=== PATIENT | female | born 1940 | race Caucasian/White ===

== ENCOUNTER → 2017-04-27 20:04 | Outpatient (CLI) | payer MEDICARE ==
[2017-04-27 21:32] LABS: INR 2.15 (0.85-1.17); PROTIME 23.4 SECONDS (11.6-15.0)
== END | disposition home or self-care (01) ==
LOC: D.LABREF 20:04
PROVIDERS: Family Medicine
DX: I48.91 Unspecified atrial fibrillation (principal)

== ENCOUNTER → 2017-05-30 17:20 | Outpatient (CLI) | payer MEDICARE ==
[2017-05-30 19:08] LABS: INR 1.64 (0.85-1.17); PROTIME 18.9 SECONDS (11.6-15.0)
== END | disposition home or self-care (01) ==
LOC: D.LABREF 17:20
PROVIDERS: Internal Medicine
DX: I50.9 Heart failure, unspecified (principal)

== ENCOUNTER → 2018-04-17 13:54 | Outpatient (CLI) | payer MEDICARE ==
[2018-04-17 14:50] LABS: INR 1.55 (0.85-1.17)
[2018-04-17 14:52] LABS: ANION GAP 18.6 mmol/L (8-16); CALCIUM 8.2 mg/dL (8.5-10.1); CARBON DIOXIDE 18.2 mmol/L (21.0-32.0); CREATININE - SERUM 1.2 mg/dL (0.6-1.3); POTASSIUM - SERUM 4.8 mmol/L (3.5-5.1)
== END | disposition home or self-care (01) ==
LOC: D.LABREF 13:54
PROVIDERS: Internal Medicine
DX: I48.91 Unspecified atrial fibrillation (principal)

== ENCOUNTER → 2018-07-14 08:29 | Outpatient (CLI) | payer MEDICARE ==
[2018-07-14 09:12] LABS: ANION GAP 15.5 mmol/L (8-16); CALCIUM 8.4 mg/dL (8.5-10.1); CARBON DIOXIDE 21.4 mmol/L (21.0-32.0); CREATININE - SERUM 1.3 mg/dL (0.6-1.3); POTASSIUM - SERUM 4.9 mmol/L (3.5-5.1)
== END | disposition home or self-care (01) ==
LOC: D.LABREF 08:29
PROVIDERS: ATTEND Internal Medicine
DX: R19.7 Diarrhea, unspecified (principal)

== ENCOUNTER → 2018-07-26 16:53 | Outpatient (CLI) | payer MEDICARE ==
[2018-07-26 18:21] LABS: INR 1.66 (0.85-1.17)
== END | disposition home or self-care (01) ==
LOC: D.LABREF 16:53
PROVIDERS: ATTEND Family Medicine
DX: I48.91 Unspecified atrial fibrillation (principal)

== ENCOUNTER → 2018-10-25 11:04 | Outpatient (CLI) | payer MEDICARE ==
[2018-10-25 12:08] LABS: ANION GAP 15.1 mmol/L (8-16); CALCIUM 7.9 mg/dL (8.5-10.1); CREATININE - SERUM 1.5 mg/dL (0.6-1.3); POTASSIUM - SERUM 5.1 mmol/L (3.5-5.1)
[2018-10-25 12:37] LABS: INR 1.94 (0.85-1.17); PROTIME 21.5 SECONDS (11.6-15.0)
== END | disposition home or self-care (01) ==
LOC: D.LABREF 11:04
PROVIDERS: ATTEND Internal Medicine
DX: I50.9 Heart failure, unspecified (principal); I48.91 Unspecified atrial fibrillation

== ENCOUNTER → 2019-06-13 22:40 | Outpatient (CLI) | payer MEDICARE ==
[2019-06-13 22:58] LABS: ANION GAP 14.8 mmol/L (8-16); CALCIUM 8.1 mg/dL (8.5-10.1); CARBON DIOXIDE 18.9 mmol/L (21.0-32.0); CREATININE - SERUM 1.7 mg/dL (0.6-1.3); INR 1.96 (0.85-1.17); POTASSIUM - SERUM 4.7 mmol/L (3.5-5.1); PROTIME 22.1 SECONDS (11.6-15.0)
== END | disposition home or self-care (01) ==
LOC: D.LABREF 22:40
PROVIDERS: ATTEND Internal Medicine
DX: I50.42 Chronic combined systolic (congestive) and diastolic (congestive) heart failure (principal); Z79.01 Long term (current) use of anticoagulants; I27.20 Pulmonary hypertension, unspecified

== ENCOUNTER → 2019-07-18 16:52 | Outpatient (CLI) | payer MEDICARE ==
[2019-07-18 19:07] LABS: BASOPHILS 0.2 % (0-2); EOSINOPHILS 1.1 % (0-7); HEMATOCRIT 35.5 % (36.0-48.0); LYMPHOCYTES 19.7 % (15-50); MCV 87.2 fL (80.0-100.0); MEAN PLATELET VOLUME 10.2 fL (7.4-10.4); MONOCYTES 10.7 % (2-11); NEUTROPHILS 68.3 % (40-80); PLATELET COUNT 185 10x3/uL (130-400); RBC 4.07 10x6/uL (4.00-5.40); RDW 21.8 % (11.5-14.5); WBC 4.7 10x3/uL (4.8-10.8)
[2019-07-18 19:17] LABS: INR 1.7 (0.85-1.17); PROTIME 19.8 SECONDS (11.6-15.0)
[2019-07-18 19:31] LABS: ANION GAP 17.6 mmol/L (8-16); CALCIUM 8.2 mg/dL (8.5-10.1); CREATININE - SERUM 1.9 mg/dL (0.6-1.3); POTASSIUM - SERUM 4.6 mmol/L (3.5-5.1)
== END | disposition home or self-care (01) ==
LOC: D.LABREF 16:52
PROVIDERS: ATTEND Internal Medicine
DX: I50.42 Chronic combined systolic (congestive) and diastolic (congestive) heart failure (principal); I27.20 Pulmonary hypertension, unspecified; I48.21 Permanent atrial fibrillation; Z79.01 Long term (current) use of anticoagulants

== ENCOUNTER → 2019-09-12 20:42 | Outpatient (CLI) | payer MEDICARE ==
[2019-09-12 21:10] LABS: HEMATOCRIT 34.8 % (36.0-48.0); HEMOGLOBIN 10.9 g/dL (12-16); MCH 29.8 pg (26.0-34.0); MCHC 31.3 g/dL (31.0-37.0); MCV 95.1 fL (80.0-100.0); PLATELET COUNT 171 10x3/uL (130-400); RBC 3.66 10x6/uL (4.00-5.40); WBC 3.7 10x3/uL (4.8-10.8)
[2019-09-12 21:23] LABS: INR 3.79 (0.85-1.17); PROTIME 36.7 SECONDS (11.6-15.0)
[2019-09-12 21:33] LABS: ANION GAP 13.8 mmol/L (8-16); CALCIUM 7.9 mg/dL (8.5-10.1); CARBON DIOXIDE 24.3 mmol/L (21.0-32.0); CREATININE - SERUM 2.1 mg/dL (0.6-1.3); MAGNESIUM - SERUM 1.9 mg/dL (1.8-2.4)
[2019-09-12 21:46] LABS: POTASSIUM - SERUM 6.1 mmol/L (3.5-5.1)
[2019-09-12 22:51] LABS: LYMPHOCYTES 28 % (15-50); NEUTROPHILS 72 % (40-80); PLATELET ESTIMATE NORMAL
== END | disposition home or self-care (01) ==
LOC: D.LABREF 20:42
PROVIDERS: Surgery; ATTEND Internal Medicine
DX: I50.42 Chronic combined systolic (congestive) and diastolic (congestive) heart failure (principal); N18.3 Chronic kidney disease, stage 3 (moderate); Z79.01 Long term (current) use of anticoagulants; I27.20 Pulmonary hypertension, unspecified

== ENCOUNTER → 2019-09-14 18:03 | Outpatient (CLI) | payer MEDICARE ==
[2019-09-14 19:29] LABS: CALCIUM 7.6 mg/dL (8.5-10.1); CARBON DIOXIDE 21.4 mmol/L (21.0-32.0); CREATININE - SERUM 2.6 mg/dL (0.6-1.3)
[2019-09-14 19:32] LABS: INR 6.89 (0.85-1.17)
[2019-09-14 19:56] LABS: ANION GAP 19.7 mmol/L (8-16); POTASSIUM - SERUM 14.1 mmol/L (3.5-5.1)
== END | disposition home or self-care (01) ==
LOC: D.LABREF 18:03
PROVIDERS: ATTEND Internal Medicine
DX: I50.42 Chronic combined systolic (congestive) and diastolic (congestive) heart failure (principal); I25.10 Atherosclerotic heart disease of native coronary artery without angina pectoris; I48.91 Unspecified atrial fibrillation; I42.9 Cardiomyopathy, unspecified

== ENCOUNTER → 2019-09-15 14:10 | Outpatient (CLI) | payer MEDICARE ==
[2019-09-15 14:32] LABS: ANION GAP 14.4 mmol/L (8-16); CALCIUM 7.9 mg/dL (8.5-10.1); CARBON DIOXIDE 21.7 mmol/L (21.0-32.0)
[2019-09-15 14:33] LABS: POTASSIUM - SERUM 5.1 mmol/L (3.5-5.1)
[2019-09-15 14:38] LABS: INR 2.86 (0.85-1.17); PROTIME 29.5 SECONDS (11.6-15.0)
== END | disposition home or self-care (01) ==
LOC: D.LABREF 14:10
PROVIDERS: ATTEND Internal Medicine
DX: I50.42 Chronic combined systolic (congestive) and diastolic (congestive) heart failure (principal); Z51.81 Encounter for therapeutic drug level monitoring; Z79.01 Long term (current) use of anticoagulants

== ENCOUNTER → 2019-10-31 22:46 | Outpatient (CLI) | payer MEDICARE ==
[2019-11-01 03:50] LABS: BASOPHILS 0.3 % (0-2); EOSINOPHILS 2.3 % (0-7); HEMATOCRIT 33.4 % (36.0-48.0); HEMOGLOBIN 10.6 g/dL (12-16); IMMATURE GRANULOCYTES 0.3 % (0-5); MCH 29.8 pg (26.0-34.0); MCHC 31.7 g/dL (31.0-37.0); MCV 93.8 fL (80.0-100.0); MEAN PLATELET VOLUME 10.3 fL (7.4-10.4); MONOCYTES 9.6 % (2-11); NEUTROPHILS 66.5 % (40-80); PLATELET COUNT 171 10x3/uL (130-400); RBC 3.56 10x6/uL (4.00-5.40); RDW 14.8 % (11.5-14.5)
[2019-11-01 03:53] LABS: ANION GAP 13.7 mmol/L (8-16); CALCIUM 8.2 mg/dL (8.5-10.1); CARBON DIOXIDE 25.5 mmol/L (21.0-32.0); MAGNESIUM - SERUM 1.8 mg/dL (1.8-2.4); POTASSIUM - SERUM 4.2 mmol/L (3.5-5.1)
[2019-11-01 03:55] LABS: INR 1.43 (0.85-1.17); PROTIME 17.3 SECONDS (11.6-15.0)
== END | disposition home or self-care (01) ==
LOC: D.LABREF 22:46
PROVIDERS: ATTEND Internal Medicine
DX: I42.8 Other cardiomyopathies (principal); I50.42 Chronic combined systolic (congestive) and diastolic (congestive) heart failure; I48.21 Permanent atrial fibrillation; N18.9 Chronic kidney disease, unspecified

== ENCOUNTER → 2019-11-26 20:17 | Outpatient (CLI) | payer MEDICARE ==
[2019-11-26 22:28] LABS: ANION GAP 13.1 mmol/L (8-16); CALCIUM 8.1 mg/dL (8.5-10.1); CARBON DIOXIDE 24.1 mmol/L (21.0-32.0); CREATININE - SERUM 1.8 mg/dL (0.6-1.3); POTASSIUM - SERUM 5.2 mmol/L (3.5-5.1)
== END | disposition home or self-care (01) ==
LOC: D.LABREF 20:17
PROVIDERS: ATTEND Internal Medicine
DX: I50.42 Chronic combined systolic (congestive) and diastolic (congestive) heart failure (principal); N18.3 Chronic kidney disease, stage 3 (moderate); I48.91 Unspecified atrial fibrillation

== ENCOUNTER → 2020-01-02 18:02 | Outpatient (CLI) | payer MEDICARE ==
[2020-01-02 18:17] LABS: ANION GAP 12.5 mmol/L (8-16); CARBON DIOXIDE 24.4 mmol/L (21.0-32.0); CREATININE - SERUM 1.8 mg/dL (0.6-1.3); POTASSIUM - SERUM 4.9 mmol/L (3.5-5.1)
== END | disposition home or self-care (01) ==
LOC: D.LABREF 18:02
PROVIDERS: ATTEND Internal Medicine
DX: I50.84 End stage heart failure (principal); N18.3 Chronic kidney disease, stage 3 (moderate); I50.42 Chronic combined systolic (congestive) and diastolic (congestive) heart failure; J96.11 Chronic respiratory failure with hypoxia

== ENCOUNTER → 2020-01-09 22:23 | Outpatient (CLI) | payer MEDICARE ==
[2020-01-09 23:43] LABS: ANION GAP 12.3 mmol/L (8-16); POTASSIUM - SERUM 4.3 mmol/L (3.5-5.1)
== END | disposition home or self-care (01) ==
LOC: D.LABREF 22:23
PROVIDERS: ATTEND Internal Medicine
DX: I50.84 End stage heart failure (principal); I50.42 Chronic combined systolic (congestive) and diastolic (congestive) heart failure; J96.11 Chronic respiratory failure with hypoxia; N18.30 Chronic kidney disease, stage 3 unspecified

== ENCOUNTER → 2020-01-16 15:47 | Outpatient (CLI) | payer MEDICARE ==
[2020-01-16 17:14] LABS: ANION GAP 12.5 mmol/L (8-16); CALCIUM 7.5 mg/dL (8.5-10.1); CARBON DIOXIDE 25.9 mmol/L (21.0-32.0); CREATININE - SERUM 1.7 mg/dL (0.6-1.3); POTASSIUM - SERUM 4.4 mmol/L (3.5-5.1)
== END | disposition home or self-care (01) ==
LOC: D.LAB 15:47
PROVIDERS: ATTEND Internal Medicine
DX: I50.84 End stage heart failure (principal); I27.20 Pulmonary hypertension, unspecified; J96.11 Chronic respiratory failure with hypoxia; N18.9 Chronic kidney disease, unspecified

== ENCOUNTER → 2020-01-23 18:20 | Outpatient (CLI) | payer MEDICARE ==
[2020-01-23 20:04] LABS: ANION GAP 17.8 mmol/L (8-16); CALCIUM 8.3 mg/dL (8.5-10.1); CARBON DIOXIDE 22.5 mmol/L (21.0-32.0); MAGNESIUM - SERUM 1.8 mg/dL (1.8-2.4); POTASSIUM - SERUM 4.3 mmol/L (3.5-5.1)
== END | disposition home or self-care (01) ==
LOC: D.LABREF 18:20
PROVIDERS: ATTEND Internal Medicine
DX: I50.9 Heart failure, unspecified (principal); E61.2 Magnesium deficiency

== ENCOUNTER → 2020-08-20 18:30 | Outpatient (CLI) | payer MEDICARE ==
[2020-08-20 18:51] LABS: BASOPHILS 0.5 % (0-2); EOSINOPHILS 0.7 % (0-7); HEMOGLOBIN 9.1 g/dL (12-16); LYMPHOCYTES 22.1 % (15-50); MCH 27.1 pg (26.0-34.0); MCHC 32.7 g/dL (31.0-37.0); MCV 82.8 fL (80.0-100.0); MONOCYTES 8.8 % (2-11); NEUTROPHILS 67.9 % (40-80); PLATELET COUNT 155 10x3/uL (130-400); RBC 3.38 10x6/uL (4.00-5.40); RDW 17.3 % (11.5-14.5); WBC 3.5 10x3/uL (4.8-10.8)
[2020-08-20 19:01] LABS: ANION GAP 13.8 mmol/L (8-16); CALCIUM 8.2 mg/dL (8.5-10.1); CARBON DIOXIDE 27.4 mmol/L (21.0-32.0); CREATININE - SERUM 1.8 mg/dL (0.6-1.3); MAGNESIUM - SERUM 1.9 mg/dL (1.8-2.4); POTASSIUM - SERUM 4.2 mmol/L (3.5-5.1)
== END | disposition home or self-care (01) ==
LOC: D.LABREF 18:30
PROVIDERS: ATTEND Internal Medicine
DX: I50.84 End stage heart failure (principal); I50.42 Chronic combined systolic (congestive) and diastolic (congestive) heart failure; I27.20 Pulmonary hypertension, unspecified; I42.8 Other cardiomyopathies

== ENCOUNTER → 2020-09-05 10:51 | Outpatient (CLI) | payer MEDICARE ==
[2020-09-05 11:59] LABS: BASOPHILS 0.6 % (0-2); EOSINOPHILS 0.7 % (0-7); HEMATOCRIT 25.9 % (36.0-48.0); HEMOGLOBIN 8.7 g/dL (12-16); LYMPHOCYTES 16.3 % (15-50); MCH 27.2 pg (26.0-34.0); MCHC 33.4 g/dL (31.0-37.0); MCV 81.4 fL (80.0-100.0); MEAN PLATELET VOLUME 7.9 fL (7.4-10.4); NEUTROPHILS 74.4 % (40-80); RBC 3.19 10x6/uL (4.00-5.40); RDW 16.4 % (11.5-14.5); WBC 4.9 10x3/uL (4.8-10.8)
[2020-09-05 12:02] LABS: ANION GAP 10.9 mmol/L (8-16); CALCIUM 8.1 mg/dL (8.5-10.1); CARBON DIOXIDE 27.6 mmol/L (21.0-32.0); CREATININE - SERUM 2.1 mg/dL (0.6-1.3); POTASSIUM - SERUM 3.5 mmol/L (3.5-5.1)
[2020-09-05 12:04] LABS: PLATELET COUNT 218 10x3/uL (130-400)
== END | disposition home or self-care (01) ==
LOC: D.LABREF 10:51
PROVIDERS: ATTEND Internal Medicine
DX: I50.9 Heart failure, unspecified (principal)

== ENCOUNTER → 2020-09-08 18:28 | Outpatient (CLI) | payer MEDICARE ==
[2020-09-08 19:03] LABS: ANION GAP 15.4 mmol/L (8-16); CALCIUM 8.2 mg/dL (8.5-10.1); CREATININE - SERUM 2.1 mg/dL (0.6-1.3); POTASSIUM - SERUM 4.4 mmol/L (3.5-5.1)
[2020-09-08 19:05] LABS: BASOPHILS 0.4 % (0-2); EOSINOPHILS 0.7 % (0-7); HEMOGLOBIN 8.5 g/dL (12-16); LYMPHOCYTES 13.7 % (15-50); MCH 26.6 pg (26.0-34.0); MCHC 32.8 g/dL (31.0-37.0); MCV 81.2 fL (80.0-100.0); MEAN PLATELET VOLUME 8.2 fL (7.4-10.4); MONOCYTES 6.5 % (2-11); NEUTROPHILS 78.7 % (40-80); PLATELET COUNT 217 10x3/uL (130-400); RDW 16.4 % (11.5-14.5); WBC 4.9 10x3/uL (4.8-10.8)
== END | disposition home or self-care (01) ==
LOC: D.LABREF 18:28
PROVIDERS: ATTEND Internal Medicine
DX: I50.9 Heart failure, unspecified (principal)

== ENCOUNTER → 2020-09-29 11:58 | Outpatient (CLI) | payer MEDICARE ==
[2020-09-29 12:45] LABS: ANION GAP 12.2 mmol/L (8-16); CALCIUM 7.7 mg/dL (8.5-10.1); CARBON DIOXIDE 28.3 mmol/L (21.0-32.0); CREATININE - SERUM 1.5 mg/dL (0.6-1.3); POTASSIUM - SERUM 3.5 mmol/L (3.5-5.1)
== END | disposition home or self-care (01) ==
LOC: D.LABREF 11:58
PROVIDERS: ATTEND Internal Medicine
DX: I50.9 Heart failure, unspecified (principal)